=== PATIENT | female | born 1960 | race Caucasian/White ===

== ENCOUNTER → 2016-11-30 | Outpatient (CLI) | payer OTHER ==
[~2016-11-30] MED LIST: LINE1TAB7 PO; MULT-513 PO; OXYC1TAB3 PO; PROB1TAB16 PO; VLT500 PO
--- NOTE | 2016-11-30 13:43 | MAMMOGRAPHY REPORT ---
BILATERAL DIGITAL SCREENING MAMMOGRAM WITH CAD: 11/30/2016 CLINICAL HISTORY: Routine screening. Patient has no complaints. TECHNIQUE: Current study was also evaluated with a Computer Aided Detection (CAD) system. Bilateral CC and MLO views including implant displaced views were obtained. COMPARISON: Comparison is made to exams dated: 11/11/2015 mammogram, 07/21/2015 ultrasound, 07/21/2015 mammogram, 11/07/2014 mammogram, 10/30/2012 mammogram, and 06/22/2011 mammogram - [facility] enter. BREAST COMPOSITION: There are scattered areas of fibroglandular density in both breasts. FINDINGS: No suspicious masses, calcifications, or areas of architectural distortion are noted in ei ther breast. There has been no significant interval change compared to prior exams. Bilateral subpec silvina silicone implants are stable in appearance. IMPRESSION: ACR BI-RADS CATEGORY 2: BENIGN There is no mammographic evidence of malignancy. A 1 year screening mammogram is recommended. The pa tient will receive written notification of the results. Approximately 10% of breast cancers are not detected with mammography. A negative mammographic report should not delay biopsy if a clinically suggestive mass is present. Amanda Carpenter M.D. ah/:11/30/2016 12:24:04 Chart Computer: Katia FLORES(R)(M), [facility] letter sent: Normal 1/2 BI-RADS Code: ACR BI-RADS Category 2: Benign
== END | disposition home or self-care (01) ==
LOC: C.MAMM 11:54
PROVIDERS: ATTEND Family Medicine
DX: Z12.31 Encounter for screening mammogram for malignant neoplasm of breast (principal)

== ENCOUNTER → 2016-12-28 | Outpatient (CLI) | payer OTHER | END | disposition home or self-care (01) | LOC: C.PATHSPEC 17:52 | PROVIDERS: ATTEND Dermatology | DX: L82.0 Inflamed seborrheic keratosis (principal) ==

== ENCOUNTER → 2017-02-14 | Outpatient (CLI) | payer OTHER ==
[2017-02-14 18:10] LABS: URINE APPEARANCE CLEAR (CLEAR); URINE BILIRUBIN NEG (NEG); URINE COLOR YELLOW; URINE NITRITE NEG (NEG); URINE SPECIFIC GRAVITY 1.012 (1.000-1.030); UROBILINOGEN NEG (NEG)
[2017-02-14 18:20] LABS: MANUAL MICROSCOPIC REQUIRED? NO; REVIEW REQ? NO
== END | disposition home or self-care (01) ==
LOC: C.LABSPEC 17:30
PROVIDERS: ATTEND Family Medicine
DX: N39.0 Urinary tract infection, site not specified (principal)

== ENCOUNTER → 2017-03-16 | Outpatient (CLI) | payer OTHER ==
--- NOTE | 2017-03-16 10:41 | DIAGNOSTIC IMAGING REPORT ---
BLADDER ULTRASONOGRAPHY CLINICAL HISTORY: R30.0 [id number] Suprapubic pressure COMPARISON STUDY: No previous studies for comparison. FINDINGS: No bladder masses are visualized. The prevoid bladder volume was within 800 cc. The post void bladder volume was 80 cc. Neither ureteral jet was visualized IMPRESSION: 1. No bladder masses identified 2. Post void residual of 80 cc Electronically signed by: Karl Muñoz M.D. 03/16/2017 10:40 AM Dictated Date/Time: 03/16/2017 10:39 AM
== END | disposition home or self-care (01) ==
LOC: C.ULTR 10:11
PROVIDERS: ATTEND Neuromusculoskeletal Medicine & OMM
DX: R30.0 Dysuria (principal); R10.2 Pelvic and perineal pain

== ENCOUNTER → 2017-04-12 | Outpatient (CLI) | payer OTHER | END | disposition home or self-care (01) | LOC: C.LABSPEC 17:45 | PROVIDERS: ATTEND Neuromusculoskeletal Medicine & OMM | DX: N39.0 Urinary tract infection, site not specified (principal) ==

== ENCOUNTER → 2017-06-20 | Outpatient (CLI) | payer OTHER ==
[2017-06-20 12:02] LABS: BASO % 1.2 %; BASO ABS # 0.05 K/uL (0-0.2); EOS % 1.5 %; EOS ABS # 0.06 K/uL (0-0.5); HEMATOCRIT 37.1 % (37-47); HEMOGLOBIN 12.5 g/dL (12.0-16.0); LYMPH % 37.4 %; LYMPH ABS # 1.52 K/uL (1.2-3.4); MEAN CORPUSCULAR HEMOGLOBIN 33.7 pg (25-34); MEAN CORPUSCULAR HGB CONC 33.7 g/dl (32-36); MEAN PLATELET VOLUME 11.5 fL (7.4-10.4); MONO % 7.9 %; MONO ABS # 0.32 K/uL (0.11-0.59); NEUT ABS # 2.11 K/uL (1.4-6.5); PLATELET COUNT 218 K/uL (130-400); RED CELL DISTRIBUTION WIDTH CV 13.1 % (11.5-14.5); WHITE BLOOD COUNT 4.06 K/uL (4.8-10.8)
[2017-06-20 12:22] LABS: BLOOD UREA NITROGEN 10 mg/dl (7-18); CARBON DIOXIDE 30 mmol/L (21-32); CHOLESTEROL 160 mg/dl (0-200); CREATININE 0.74 mg/dl (0.60-1.20); GLUCOSE 97 mg/dl (70-99); POTASSIUM 3.9 mmol/L (3.5-5.1); SODIUM 139 mmol/L (136-145)
[2017-06-20 12:25] LABS: LDL CHOLESTEROL CALCULATED 85 mg/dl
== END | disposition home or self-care (01) ==
LOC: C.LAB1850 10:13
PROVIDERS: ATTEND Neuromusculoskeletal Medicine & OMM
DX: Z01.818 Encounter for other preprocedural examination (principal); Z13.220 Encounter for screening for lipoid disorders